=== PATIENT | male | born 2000 | race Two or more races ===

== ENCOUNTER 2023-05-24 00:03 | Emergency (ER) | payer OTHER ==
[~2023-05-24] VITALS: Ht 180.3 cm; Wt 64.9 kg
[2023-05-24 00:12] VITALS: BP 116/73; TEMP 98.1; O2SAT 98
[2023-05-24] MEDS ORDERED: HYDROCODONE/APAP 5/325MG TABLET ONE (00:19)
[2023-05-24] MEDS ORDERED: TDAP [DIPH/PERTUSSIS/TET] 0.5 ML VIAL IM ONE ×2 (00:20→00:30)
[2023-05-24] MEDS ORDERED: CEPHALEXIN MONOHYDRATE 500 MG CAPSULE PO ONE ×2 (00:20→00:30)
[2023-05-24] MEDS ORDERED: CEPH500T PO (00:24)
[2023-05-24] MEDS ORDERED: HYDROCODONE/APAP 5/325MG TABLET PO ONE (00:30)
== END 2023-05-24 01:18 | disposition home or self-care (01) ==
LOC: ER 00:07
DX: S40.812A Abrasion of left upper arm, initial encounter (principal); S40.811A Abrasion of right upper arm, initial encounter; S80.812A Abrasion, left lower leg, initial encounter; S80.811A Abrasion, right lower leg, initial encounter; V89.9XXA Person injured in unspecified vehicle accident, initial encounter; Y93.89 Activity, other specified; Y92.89 Other specified places as the place of occurrence of the external cause; Y99.8 Other external cause status
CPT/HCPCS: 99283; 90471; 90715; A6403